=== PATIENT | male | born 1970 | race Caucasian/White ===

== ENCOUNTER → 2016-11-26 14:19 | Emergency (ER) | payer BC, OTHER ==
[~2016-11-26 14:19] MED LIST: Ketorolac INJ* 60 MG/2 ML VIAL IM ONE
--- NOTE | 2016-11-26 16:21 | ED ---
Throat Pain/Nasal Congestion - HPI Summary HPI Summary: Patient arrives to ED with CC of pain over left lower molar radiating to the jaw and ear. The tooth was in decay and broke off 2 days ago with now worsening pain. Denies trismus, drooling or dysphagia. Pain is 10/10, sharp and throbbing. Denies airway compromise or SOB. Denies ear pain, eye pain, blurry vision or double vision. Otherwise healthy. Pain is worse with chewing and cold drinks, better with ibuprofen, but only improves slightly. Patient denies dental care for several years. He notes to brown discharge from the left ear x 2 days with ear pain. - History of Current Complaint Chief Complaint: EDDentalPain Time Seen by Provider: 11/26/16 15:36 Hx Obtained From: Patient Onset/Duration: Sudden Onset Severity: Severe Associated Signs And Symptoms: Positive: Negative Related History: Smoking - Epiglottits Risk Factors Epiglottis Risk Factors: Negative - Allergies/Home Medications Allergies/Adverse Reactions: Allergies Allergy/AdvReac Type Severity Reaction Status Date / Time No Known Allergies Allergy Verified 06/06/13 19:33 PMH/Surg Hx/FS Hx/Imm Hx Previously Healthy: Yes - Immunization History Date of Tetanus Vaccine: unknown Hx Pertussis Vaccination: No Immunizations Up to Date: Unable to Obtain/Confirm Infectious Disease History: No Infectious Disease History: Denies: Traveled Outside the [place] in Last 30 Days - Social History Occupation: Employed Full-time Lives: With Family Alcohol Use: Rare Hx Substance Use: No Substance Use Type: Reports: None Hx Tobacco Use: No Smoking Status (MU): Never Smoked Tobacco Do You Chew or Dip Tobacco: No Review of Systems Constitutional: Negative Eyes: Negative Positive: Dental Pain, Ear Ache Cardiovascular: Negative Respiratory: Negative Positive: no symptoms reported, see HPI Musculoskeletal: Negative Neurological: Negative Psychological: Normal All Other Systems Reviewed And Are Negative: Yes Physical Exam Triage Information Reviewed: Yes Vital Signs On Initial Exam: Initial Vitals Temp Pulse Resp BP Pulse Ox 96.8 F 70 16 141/104 92 11/26/16 14:23 11/26/16 14:23 11/26/16 14:23 11/26/16 14:23 11/26/16 14:23 Vital Signs Reviewed: Yes Appearance: Positive: Well-Appearing, No Pain Distress, Well-Nourished Skin: Positive: Warm, Skin Color Reflects Adequate Perfusion Head/Face: Positive: Normal Head/Face Inspection Eyes: Positive: EOMI, ASHANTI, Conjunctiva Clear Neck: Positive: Supple, No Lymphadenopathy Respiratory/Lung Sounds: Positive: Clear to Auscultation, Breath Sounds Present Cardiovascular: Positive: Normal, RRR, Pulses are Symmetrical in both Upper and Lower Extremities Musculoskeletal: Positive: Normal, Strength/ROM Intact Neurological: Positive: Normal, Sensory/Motor Intact, Alert, Oriented to Person Place, Time, CN Intact II-III Psychiatric: Positive: Normal AVPU Assessment: Alert Diagnostics - Vital Signs Vital Signs Temp Pulse Resp BP Pulse Ox 11/26/16 14:23 96.8 F 70 16 141/104 92 - Laboratory Lab Statement: Any lab studies that have been ordered have been reviewed, and results considered in the medical decision making process. EENT Course/Dx - Course Course Of Treatment: No dental abscess or lesions seen over area of concern. Broken left lower molar with surrounding erythema at site of pain. No drainage from area. Several dental caries, cavities, crowding and broken teeth throughout. Pain on palpation over mandible. No TMJ tenderness. No pain with opening and closing mouth. Poor dental hygiene and outpatient dental care. Will treat for possible dental infection/abscess based on symptoms of pain and radiation to jaw and ear. No allergies. Will treat with Penicillin x 7 days. Small amount of fluid discharge yellow in color from the left ear. Will treat with Ofloxacin drops. Patient to follow up immediately with dentist and PCP. Percoset given as rx. - Differential Diagnoses Differential Diagnoses: Mastoiditis, Odontogenic Pain, Otitis Externa, Otitis Media, Pain of Unknown Etiology - Diagnoses Provider Diagnoses: Otitis externa, Pain, dental Discharge - Discharge Plan Condition: Stable Disposition: HOME Prescriptions: Ofloxacin 0.3% OTIC.TESS* [Floxin 0.3% OTIC.TESS*] 1 drop .SEE ORDER ONCE #1 btl Penicillin VK TAB 500 MG(NF) [Penicillin VK 500 mg Tab(NF)] 500 mg PO QID #28 tab MDD 4 oxyCODONE/Acetamin 5/325 MG* [Percocet 5/325 TAB*] 1 tab PO Q4H PRN #12 tab MDD 6 PRN Reason: Pain Patient Education Materials: Dental Abscess (ED), Otitis Externa (ED) Referrals: Storm,Shawnti R, PORTABLE IRRIGATION OPERATOR [Primary Care Provider] - Additional Instructions: You have been diagnosed with dental pain with possible infection: Antibiotics as prescribed to you. Penicillin four times daily for 7 days Otic drops. Instill 10 drops into L ear once daily To minimize the potential for gastrointestinal intolerance, Penicillin should be taken at the start of a meal. If you have any questions about your medication, please contact us or ask your pharmacist. Salt water rinses several times per day will improve healing time. Ibuprofen 600mg three times daily with meals for discomfort. Follow up with a dentist for routine care to prevent recurrence of infections. If fever, worsening pain or swelling develops, see your PCP, dentist or come back to the Emergency Department.
[2016-11-26 16:26] VITALS: BP 153/94
== END | disposition home or self-care (01) ==
LOC: ED 14:19
DX: H60.92 Unspecified otitis externa, left ear (principal); K08.89 Other specified disorders of teeth and supporting structures
CPT/HCPCS: 99282; J1885

== ENCOUNTER 2017-12-28 17:08 | Emergency (ER) | payer OTHER ==
[2017-12-28 17:33] VITALS: BP 117/79
--- NOTE | 2017-12-28 19:05 | UC ---
[facility] Dental HPI - HPI Summary HPI Summary: 47 y/o male presents to the urgent care c/o Rt lower jaw tooth pain for 2 days. Pt reports he had a problem with this same tooth and a cap was put on it. last year, but it seems now pain returned. Pain is 8/10 sharp and mild swelling around tooth. He has taken Ibuprofen PO to alleviate symptoms. Last dose was last night. Pt denies fever, trismus, CARLOS, SOB, chest pain, abdominal pain, N/v/ D. He has had different dentist in the past. - History of Current Complaint Chief Complaint: UCDentalProblem Stated Complaint: ABCESS IN TOOTH Time Seen by Provider: 12/28/17 18:46 Hx Obtained From: Patient Onset/Duration: Sudden Onset, Lasting Days - 3 days, Still Present, Worse Since - yesterday Severity: Moderate Pain Intensity: 8 Pain Scale Used: 0-10 Numeric Aggravating Factor(s): Cold Alleviating Factor(s): OTC Meds Related History: Previous Dental Care on Same Tooth, Swelling - Allergies/Home Medications Allergies/Adverse Reactions: Allergies Allergy/AdvReac Type Severity Reaction Status Date / Time No Known Allergies Allergy Verified 12/28/17 17:33 PMH/Surg Hx/FS Hx/Imm Hx Previously Healthy: Yes - Pt denies PMHX - Surgical History Surgical History: Yes Surgery Procedure, Year, and Place: Left knee. Left Orbit - Family History Known Family History: Positive: None - Pt denies FMHX - Social History Occupation: Employed Full-time Lives: With Family Alcohol Use: Occasionally Substance Use Type: None Smoking Status (MU): Never Smoked Tobacco Review of Systems Constitutional: Negative Skin: Negative Eyes: Negative ENT: Dental Pain - Rt lower toothache and swelling Respiratory: Negative Cardiovascular: Negative Gastrointestinal: Negative Genitourinary: Negative Motor: Negative Neurovascular: Negative Musculoskeletal: Negative Neurological: Negative Psychological: Negative Is Patient Immunocompromised?: No All Other Systems Reviewed And Are Negative: Yes Physical Exam - Summary Physical Exam Summary: Vital Signs Reviewed: Yes General: Well-Appearing, No Pain Distress, Well-Nourished Eyes: Positive: Conjunctiva Clear - PERRLA, EOMI, ENT: Positive: Normal ENT inspection, Hearing grossly normal, Pharynx normal, TMs normal - B/L external ear canals clear,. Negative: Tonsillar swelling, Tonsillar exudate, Trismus Dental: Positive: Mild Caries @ -Molar #28 w/ a cap in place. Abscess @ - w/ gingival swelling and erythema, tender to percussion. involves tissue surrounding the teeth #28, Cervical Lymphadenopathy - Neck: Positive: Supple Respiratory: Positive: Chest non-tender, Lungs clear, Normal breath sounds, No respiratory distress Cardiovascular: Positive: RRR, No Murmur, Pulses Normal, Brisk Capillary Refill Abdomen Description: Positive: Nontender, No Organomegaly, Soft. Negative: CVA Tenderness (R), CVA Tenderness (L) Bowel Sounds: Positive: Present Musculoskeletal: Positive: Strength Intact, ROM Intact, No Edema Neurological Exam: Normal Psychological Exam: Normal Skin Exam: Normal Triage Information Reviewed: Yes Vital Signs: Initial Vital Signs Temp 99.3 F 12/28/17 17:30 Pulse 83 12/28/17 17:30 Resp 18 12/28/17 17:30 BP 117/79 12/28/17 17:30 Pulse Ox 97 12/28/17 17:30 Dental Complaint Course/Dx - Course Course Of Treatment: 47 y/o male presents to the urgent care c/o Rt lower jaw tooth pain for 2 days. Pt reports he had a problem with this same tooth and a cap was put on it. last year, but it seems now pain returned. Pain is 8/10 sharp and mild swelling around tooth. He has taken Ibuprofen PO to alleviate symptoms. Last dose was last night. Pt denies fever, trismus, CARLOS, SOB, chest pain, abdominal pain, N/v/D. He has had different dentist in the past. Hx obtained. Pt w/ possibly a dental abscess on molar #28. Pt given viscous Lidocaine and a Toradol IM inj at the clinic to alleviate symptoms. Pt tolerated well IM inj givne by nurse. Pt also given Frist dose of Clindamycin PO and Rx sent to pharmacy. Pt strongly advised to f/u with Dentist as soon as possible further evaluation and treatment. d/c instructions explained. Pt understood and agreed with plan of care. Left the clinic ambulating. - Differential Dx/Diagnosis Differential Diagnosis/Dx: Dental Abscess, Dental Caries, Peridontic Disease, Peritonsillar Abcess Provider Diagnoses: 1- Dental abscess around molar #28 Discharge - Sign-Out/Discharge Documenting (check all that apply): Patient Departure - D/c home - Discharge Plan Condition: Stable Disposition: HOME Prescriptions: Clindamycin Cap(NF) [Clindamycin Cap 300 mg Cap(NF)] 300 mg PO TID #28 cap Patient Education Materials: Dental Abscess (ED) Referrals: Roxi Herrera STUDENT FINANCIAL AID MANAGER [Primary Care Provider] - 2 Days Additional Instructions: 1-Please take full course of antibiotic starting tomorrow to avoid resistance. first loading dose given tonight 2- Please continue taking Ibuprofen PO q6-8hrs prn as instructed after meals to alleviate pain and swelling. 3- F/u with your Dentist or Dental List provided as soon as possible for further treatment. 4- If symptoms do not improve or worsen please return to the urgent care or f/u with your PCP for further evaluation and treatment - Billing Disposition and Condition Condition: STABLE Disposition: Home
[2017-12-28] MEDS ORDERED: Ketorolac INJ* 30 MG/ML 1 ML VIAL IM ONE (19:11)
[2017-12-28] MEDS ORDERED: Lidocaine 2% VISCOUS* 15 ML UDC SWISH SPIT ONE (19:12)
[2017-12-28] MEDS ORDERED: Clindamycin CAP* 150 MG PO ONE (19:13)
== END 2017-12-28 19:30 | disposition home or self-care (01) ==
LOC: UCEAST 17:08
DX: K04.7 Periapical abscess without sinus (principal)
CPT/HCPCS: 96372; 99213; A9270-GY; G0463; J1885

== ENCOUNTER 2017-12-29 03:17 | Emergency (ER) | payer OTHER ==
[2017-12-29] MEDS ORDERED: Piperacillin/Tazobac ADVAN(*) 3.375 GM in NS 0.9% 100 ML* 100 ML IVPB ONE (04:23)
[2017-12-29] MEDS ORDERED: Dexamethasone IV* 4 MG/ML 1 ML (4 MG) IV SLOW PU ONE (04:24)
[2017-12-29] MEDS ORDERED: NS 0.9% 1000 ML* 1,000 ML IV ONE (04:24)
[2017-12-29] MEDS ORDERED: Morphine INJ* 2 MG/ML 1 ML SYRINGE (TWO MG - NEW SYRINGE VERSION) IV ONE (04:24)
[2017-12-29] MEDS ORDERED: Metoclopramide IV* 5 MG/ML 2 ML VIAL IV SLOW PU ONE (04:25)
[2017-12-29 04:49] LABS: ABS Basophils 0 10^3/ul (0-0.2); ABS Eosinophils 0.1 10^3/ul (0-0.6); ABS Lymphocytes 1.1 10^3/ul (1.0-4.8); ABS Monocytes 0.5 10^3/ul (0-0.8); ABS Neutrophils 4.4 10^3/ul (1.5-7.7); ABS Nucleated RBC 0 10^3/ul; Eosinophil % 2.3 % (0-6); Hematocrit 46 % (42-52); Hemoglobin 15.9 g/dl (14.0-18.0); Mean Corpuscular HGB Conc 34 g/dl (31-36); Mean Corpuscular Hemoglobin 32 pg (27-31); Mean Corpuscular Volume 93 fL (80-94); Mean Platelet Volume 9.1 um3 (7.4-10.4); Nucleated Red Blood Cells % 0.1; Platelet Count 140 10^3/ul (150-450); Red Blood Count 4.99 10^6/ul (4.00-5.40); Red Cell Distribution Width 14 % (10.5-15); White Blood Count 6.1 10^3/ul (3.5-10.8)
--- NOTE | 2017-12-29 04:58 | ED ---
Throat Pain/Nasal Congestion - HPI Summary HPI Summary: This is barbara Uribe documenting for Dr. Ross Alvarado MD. Pt is 47 y/o M who presents to ED c/o tooth pain. Rates his pain intensity as 6/ 10 in severity. Went to [facility] earlier for tooth infection, but the swelling has gotten worse since then and spread under his tongue as well. The symptoms began a few days ago. Denies fever or throat issues. Tried to use peroxide to treat himself before going to [facility]. Nothing alleviates or exacerbates symptoms. No medications or other medical problems. - History of Current Complaint Chief Complaint: EDDentalPain Time Seen by Provider: 12/29/17 04:11 Hx Obtained From: Patient Onset/Duration: Lasting Days, Still Present Severity: Moderate - 6/10 Associated Signs And Symptoms: Negative: Dysphagia - Allergies/Home Medications Allergies/Adverse Reactions: Allergies Allergy/AdvReac Type Severity Reaction Status Date / Time No Known Allergies Allergy Verified 12/29/17 03:18 PMH/Surg Hx/FS Hx/Imm Hx Endocrine/Hematology History: Denies: Hx Blood Disorders Respiratory History: Denies: Hx Lung Cancer - Surgical History Surgery Procedure, Year, and Place: Left knee. Left Orbit - Immunization History Date of Tetanus Vaccine: unknown Infectious Disease History: No Infectious Disease History: Denies: Traveled Outside the [place] in Last 30 Days - Family History Known Family History: Negative: Seizure Disorder - Social History Alcohol Use: Occasionally Hx Substance Use: No Substance Use Type: Reports: None Hx Tobacco Use: No Smoking Status (MU): Never Smoked Tobacco Review of Systems Negative: Fever Positive: Dental Pain. Negative: Sore Throat All Other Systems Reviewed And Are Negative: Yes Physical Exam - Summary Physical Exam Summary: VITAL SIGNS: Reviewed. GENERAL: Patient is a well-developed and nourished male who is lying comfortable in the stretcher. Patient is not in any acute respiratory distress. HEAD AND FACE: Swelling and tenderness over right lower face. No signs of trauma. No ecchymosis, hematomas or skull depressions. No sinus tenderness. EYES: PERRLA, EOMI x 2, No injected conjunctiva, no nystagmus. EARS: Hearing grossly intact. Ear canals and tympanic membranes are within normal limits. MOUTH: Tenderness over right lower gum. NECK: Supple, trachea is midline, no adenopathy, no JVD, no carotid bruit, no c- spine tenderness, neck with full ROM. CHEST: Symmetric, no tenderness at palpation LUNGS: Clear to auscultation bilaterally. No wheezing or crackles. CVS: Regular rate and rhythm, S1 and S2 present, no murmurs or gallops appreciated. ABDOMEN: Soft, non-tender. No signs of distention. No rebound no guarding, and no masses palpated. Bowel sounds are normal. EXTREMITIES: FROM in all major joints, no edema, no cyanosis or clubbing. NEURO: Alert and oriented x 3. No acute neurological deficits. Speech is normal and follows commands. SKIN: Dry and warm Triage Information Reviewed: Yes Vital Signs On Initial Exam: Initial Vitals Temp Pulse Resp BP Pulse Ox 97.8 F 60 18 154/108 96 12/29/17 03:18 12/29/17 03:18 12/29/17 03:18 12/29/17 03:18 12/29/17 03:18 Vital Signs Reviewed: Yes Diagnostics - Vital Signs Vital Signs Temp Pulse Resp BP Pulse Ox 12/29/17 04:41 16 12/29/17 03:18 97.8 F 60 18 154/108 96 - Laboratory Lab Results: Lab Results 12/29/17 Range/Units 04:37 WBC 6.1 (3.5-10.8) 10^3/ul RBC 4.99 (4.00-5.40) 10^6/ul Hgb 15.9 (14.0-18.0) g/dl Hct 46 (42-52) % MCV 93 (80-94) fL MCH 32 H (27-31) pg MCHC 34 (31-36) g/dl RDW 14 (10.5-15) % Plt Count 140 L (150-450) 10^3/ul MPV 9.1 (7.4-10.4) um3 Neut % (Auto) 71.0 (38-83) % Lymph % (Auto) 18.0 L (25-47) % [place] % (Auto) 8.0 H (0-7) % Eos % (Auto) 2.3 (0-6) % Baso % (Auto) 0.7 (0-2) % Absolute Neuts (auto) 4.4 (1.5-7.7) 10^3/ul Absolute Lymphs (auto) 1.1 (1.0-4.8) 10^3/ul Absolute Monos (auto) 0.5 (0-0.8) 10^3/ul Absolute Eos (auto) 0.1 (0-0.6) 10^3/ul Absolute Basos (auto) 0 (0-0.2) 10^3/ul Absolute Nucleated RBC 0 10^3/ul Nucleated RBC % 0.1 Result Diagrams: 12/29/17 04:37 12/29/17 04:37 Lab Statement: Any lab studies that have been ordered have been reviewed, and results considered in the medical decision making process. - CT CT Maxillofacial CT Interpretation Completed By: Radiologist - IMPRESSION: 1. There is scattered subcutaneous emphysema noted overlying the right maxillary bone with surrounding inflammatory changes. There is no rim-enhancing collection visualized. 2. There are prominent appearing lymph nodes noted measuring up to 1.5 CM, findings may be reactive in nature. ED Physician reviewed this report. Re-Evaluation - Re-Evaluation First Eval Re-Evaluation Time: 06:40 Change: Improved - Pt feels better and swelling is down. Discussed CT results and plans to discharge home. Pt is agreeable with plan. EENT Course/Dx - Course Course Of Treatment: Pt is 47 y/o M who presents to ED c/o tooth pain. Rates his pain intensity as 6/10 in severity. Went to [facility] earlier for tooth infection , but the swelling has gotten worse since then and spread under his tongue as well. The symptoms began a few days ago. Denies fever. Tried to use peroxide to treat himself before going to [facility]. Nothing alleviates or exacerbates symptoms. No medications or other medical problems. Physical exam revealed swelling and tenderness over right lower face, and tenderness over right lower gum. CT Maxillofacial shows scattered subcutaneous emphysema noted overlying the right maxillary bone with surrounding inflammatory changes and prominent appearing lymph nodes noted measuring up to 1.5 CM. ED Physician reviewed this report and agrees. Pt feels better at 6:40 and swelling is down. Discussed CT results with pt and plans to discharge home. He is agreeable with plan. Pt is diagnosed with gingivitis and he will follow up with dentist this morning as planned. - Diagnoses Provider Diagnoses: Gingivitis Discharge - Sign-Out/Discharge Documenting (check all that apply): Patient Departure - Discharge - Discharge Plan Condition: Stable Disposition: HOME Patient Education Materials: Gingivitis (ED) Referrals: Roxi Herrera ADVERTISING PRODUCTION MANAGER [Primary Care Provider] - 2 Days Additional Instructions: Follow up with your dentist. RETURN FOR ANY NEW OR WORSENING SYMPTOMS.
[2017-12-29 05:03] LABS: EGFR Non-African American 64.9 (>60)
[2017-12-29] MEDS ORDERED: Iohexol 300* (CONTRAST) 10 ML SDV IV ONE (05:31)
[2017-12-29 06:48] VITALS: BP 139/76
--- NOTE | 2017-12-30 07:32 | RAD ---
INDICATION: Facial abscess COMPARISON: None TECHNIQUE: Axial source images were acquired from the vertex of the mandible through the orbits. Coronal and sagittal reconstructed images were acquired. 75 mL Omnipaque 300 was utilized FINDINGS: Bones: There is no acute facial bone fracture. There is a surgical plate and screws at the level of the left maxillary antrum related to prior injury. Orbits: The globes and intraconal structures appear intact. The optic nerves are symmetric. Extraocular muscles appear normal. There is no intraconal inflammatory change or retrobulbar mass.. Paranasal sinuses: The paranasal sinuses are clear. Brain: There are no acute abnormalities of the visualized brain parenchyma. Soft tissues: There is a small amount subcutaneous emphysema about the right mandible with minor skin induration and subcutaneous edema consistent with inflammatory response. There is no localized fluid collections to suggest abscess. There are mildly asymmetric lymph nodes which are likely reactive and are not technically enlarged by size criteria. Other: None The visualized soft tissue elements about the neck appear normal. IMPRESSION: MILD INFLAMMATORY CHANGE ABOUT THE RIGHT MANDIBLE. NO LOCALIZED FLUID COLLECTION TO SUGGEST ABSCESS. .
== END 2017-12-29 06:46 | disposition home or self-care (01) ==
LOC: ED 03:17
DX: K05.10 Chronic gingivitis, plaque induced (principal); T79.7XXA Traumatic subcutaneous emphysema, initial encounter; X58.XXXA Exposure to other specified factors, initial encounter
CPT/HCPCS: 36415; 70487; 80053; 83605; 85025; 87040; 96374; 96375; 99283; J1100; J2270; J2543; J2765; Q9967

== ENCOUNTER 2018-02-19 09:50 | Emergency (ER) | payer BC, OTHER ==
[2018-02-19] MEDS ORDERED: Ketorolac INJ* 60 MG/2 ML VIAL IM ONE (10:31)
[2018-02-19] MEDS ORDERED: Orphenadrine Citrate IV* 30 MG/ML 2 ML VIAL IM ONE (10:31)
--- NOTE | 2018-02-19 10:36 | ED ---
Back Pain - HPI Summary HPI Summary: This patient is a 47 year old M presenting to [facility] with a chief complaint of lower back pain s/p lifting a bucket at 0730. He endorses nausea and occasional left thigh pain. He denies abd pain and incontinence. He notes that years ago he suffered 3 herniated discs; did PT, did not have any back surgeries. - History of Current Complaint Chief Complaint: EDBackInjuryPain Stated Complaint: BACK PAIN Time Seen by Provider: 02/19/18 10:21 Hx Obtained From: Patient Onset/Duration: Sudden Onset, Lasting Hours, Still Present Onset/Duration: Started Hours Ago, Still Present Timing: Constant Back Pain Location: Is Discrete @ - lower back Severity Initially: Moderate Severity Currently: Moderate Pain Intensity: 4 Pain Scale Used: 0-10 Numeric Aggravating Symptom(s): Movement, Lifting, Bending Alleviating Symptom(s): Nothing Associated Signs And Symptoms: Positive: Other - nausea. Negative: Fever, Abdominal Pain, Bladder Incontinence, Bowel Incontinence - Allergies/Home Medications Allergies/Adverse Reactions: Allergies Allergy/AdvReac Type Severity Reaction Status Date / Time No Known Allergies Allergy Verified 12/29/17 03:18 Home Medications: Home Medications Ibuprofen 800 mg pe PO 02/19/18 [History] PMH/Surg Hx/FS Hx/Imm Hx Endocrine/Hematology History: Denies: Hx Blood Disorders, Hx Sickle Cell Disease Respiratory History: Denies: Hx Lung Cancer History: Denies: Hx Dialysis Musculoskeletal History: Reports: Hx Back Problems - 3x herniated discs Sensory History: Denies: Hx Legally Blind, Hx Deafness Opthamlomology History: Denies: Hx Legally Blind EENT History: Denies: Hx Deafness Neurological History: Denies: Hx Dementia Psychiatric History: Denies: Hx Schizophrenia - Surgical History Surgery Procedure, Year, and Place: Left knee. Left Orbit - Immunization History Date of Tetanus Vaccine: unknown Infectious Disease History: No Infectious Disease History: Reports: Traveled Outside the [place] in Last 30 Days - Family History Known Family History: Negative: Seizure Disorder - Social History Occupation: Employed Full-time Alcohol Use: Occasionally Hx Substance Use: No Substance Use Type: Reports: None Hx Tobacco Use: No Smoking Status (MU): Never Smoked Tobacco Review of Systems Negative: Fever Positive: Nausea. Negative: Abdominal Pain Positive: no symptoms reported. Negative: incontinence Positive: Myalgia - lower back, left thigh transiently All Other Systems Reviewed And Are Negative: Yes Physical Exam - Summary Physical Exam Summary: Appearance: Well appearing, no pain distress Skin: warm, dry, reflects adequate perfusion Head/face: normal Eyes: EOMI, ASHANTI ENT: normal Neck: supple, non-tender Respiratory: CTA, breath sounds present Cardiovascular: RRR, pulses symmetrical Abdomen: non-tender, soft Bowel: present Musculoskeletal: spasm over lumbar spine, strength/ROM intact Neuro: normal, sensory motor intact, A&Ox3 Triage Information Reviewed: Yes Vital Signs On Initial Exam: Initial Vitals Temp Pulse Resp BP Pulse Ox 98.2 F 61 16 130/87 97 02/19/18 10:12 02/19/18 10:12 02/19/18 10:12 02/19/18 10:12 02/19/18 10:12 Vital Signs Reviewed: Yes Diagnostics - Vital Signs Vital Signs Temp Pulse Resp BP Pulse Ox 02/19/18 10:12 98.2 F 61 16 130/87 97 - Laboratory Lab Statement: Any lab studies that have been ordered have been reviewed, and results considered in the medical decision making process. 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 #. Multilevel degenerative spondylosis with interval progression. #. Negative for acute fracture. Back Pain Course/Dx - Course Course Of Treatment: A 47-year-old M presents to the ED with a CC of lower back pain since 729. (+) lower back pain, occasional left thigh pain, and nausea. (- ) incontinence and abd pain. PMHx 3x herniated discs, no surgery. Was lifting a bucket and pain onset. In the ED course, pt was given toradol and norflex. An XR L-spine was (-) aside from chronic bilateral L5 spondylolysis and grade 1 anterolisthesis and multilevel degenerative spondylosis with interval progression. - Diagnoses Differential Diagnosis/HQI/PQRI: Positive: Fracture, Strain Provider Diagnoses: Back pain Discharge - Sign-Out/Discharge Documenting (check all that apply): Patient Departure - discharge - Discharge Plan Condition: Stable Disposition: HOME Prescriptions: Cyclobenzaprine TAB* [Flexeril 10 MG TAB*] 10 mg PO TID PRN #12 tab MDD 3 PRN Reason: Pain Diclofenac Sodium EC TAB* [Voltaren EC TAB*] 50 mg PO TID PRN #20 tab.ec MDD 3 PRN Reason: Pain Patient Education Materials: Back Pain (ED) Referrals: Agustín Wray MD [Medical Doctor] - 3 Days Additional Instructions: Return to the emergency department for any new or worsening symptoms. - Billing Disposition and Condition Condition: STABLE Disposition: Home - Attestation Statements Document Initiated by Anabelibe: Yes Documenting Scribe: Ankit Melton Provider For Whom Madeleine is Documenting (Include Credential): Dr. Crow Lindsey MD Scribe Attestation: Ankit Walton scribed for Dr. Crow Lindsey MD on 02/19/18 at 1201. Scribe Documentation Reviewed: Yes Provider Attestation: The documentation as recorded by the Ankit jimenez accurately reflects the service I personally performed and the decisions made by me, Dr. Crow Lindsey MD
--- NOTE | 2018-02-19 11:37 | RAD ---
Indication: Lower back pain with occasional radiation to the LEFT leg exacerbated by lifting this morning. Comparison: February 01, 2010 MRI and December 29, 2009 CT. Technique: AP, lateral, and oblique views lumbar sacral spine. Report: Straightening relative to normal lumbar lordosis. Unchanged minimal grade 1 L5-S1 anterolisthesis. Bilateral L5 spondylolysis is chronic based on correlation with the 2010 CT. Negative for acute fracture. Multilevel degenerative spondylosis with moderate disc space narrowing most prominent at the L3-L4 and L4-L5 levels with interval worsening. Unremarkable paraspinal soft tissue contours. IMPRESSION: #. Chronic bilateral L5 spondylolysis and grade 1 anterolisthesis. #. Multilevel degenerative spondylosis with interval progression. #. Negative for acute fracture.
[2018-02-19 11:55] VITALS: BP 127/79
== END 2018-02-19 11:54 | disposition home or self-care (01) ==
LOC: ED 09:50
DX: M54.5 Low back pain (principal); X50.9XXA Other and unspecified overexertion or strenuous movements or postures, initial encounter; Y92.9 Unspecified place or not applicable; M79.652 Pain in left thigh; R11.0 Nausea; M43.16 Spondylolisthesis, lumbar region
CPT/HCPCS: 72110; 96372; 99282; J1885; J2360

== ENCOUNTER 2018-11-23 14:14 | Emergency (ER) | payer BC, OTHER ==
[2018-11-23 14:27] VITALS: BP 135/89
--- NOTE | 2018-11-23 15:11 | UC ---
Knee Pain HPI - HPI Summary HPI Summary: 48 yo male presents with LEFT knee pain. He tells me that earlier today he was going down some steps and "jolted" his left knee. Since then has had some pain and swelling to the medial aspect of his knee. He is ambulatory without assistance, but it is painful. He has not taken anything OTC for his discomfort. He has had multiple surgeries on his left knee. He denies numbness, tingling, or instability to the knee. - History of Current Complaint Chief Complaint: UCLowerExtremity Stated Complaint: LT KNEE INJURY Time Seen by Provider: 11/23/18 15:10 Hx Obtained From: Patient Onset/Duration: Sudden Onset Severity Initially: Moderate Severity Currently: Mild Pain Intensity: 4 Pain Scale Used: 0-10 Numeric Aggravating Factor(s): Weight Bearing Able to Bear Weight: Yes - Allergies/Home Medications Allergies/Adverse Reactions: Allergies Allergy/AdvReac Type Severity Reaction Status Date / Time No Known Allergies Allergy Verified 11/23/18 14:26 Home Medications: Home Medications NK [No Home Medications Reported] 11/23/18 [History Confirmed 11/23/18] PMH/Surg Hx/FS Hx/Imm Hx - Additional Past Medical History Additional PMH: None - Surgical History Surgical History: Yes Surgery Procedure, Year, and Place: Left knee repair. right shoulder. Left Orbit fracture. lipoma - Family History Known Family History: Positive: None Negative: Seizure Disorder - Social History Occupation: Employed Full-time Lives: With Family Alcohol Use: Weekly Substance Use Type: None Smoking Status (MU): Never Smoked Tobacco Review of Systems All Other Systems Reviewed And Are Negative: Yes Constitutional: Positive: Negative Skin: Positive: Negative Respiratory: Positive: Negative Cardiovascular: Positive: Negative Neurovascular: Positive: Negative Musculoskeletal: Positive: Other: - Left knee pain Neurological: Positive: Negative Psychological: Positive: Negative Physical Exam - Summary Physical Exam Summary: GENERAL: NAD. WDWN. No pain distress. SKIN: No rashes, sores, lesions, or open wounds. CHEST: No accessory muscle use. Breathing comfortably and in no distress. CV: Pulses intact popliteal, PT, and DP. Cap refill <2seconds MSK: LEFT KNEE: Mild TTP at medial aspect of joint line with mild edema. FROM. Strength 5/5. No patella apprehension. Negative Davian, A/P drawer, Tico, and varus/valgus stress. NEURO: Alert. Sensations intact and symmetric B/L LEs PSYCH: Age appropriate behavior. Triage Information Reviewed: Yes Vital Signs: Initial Vital Signs Temp 98 F 11/23/18 14:23 Pulse 44 11/23/18 14:23 Resp 18 11/23/18 14:23 BP 135/89 11/23/18 14:23 Pulse Ox 97 11/23/18 14:23 Vital Signs Reviewed: Yes Knee Pain Course/Dx - Course Course Of Treatment: XR: IMPRESSION: Postoperative changes of the left knee. Mild degenerative changes in the medial and lateral compartment as well as the patellofemoral joint. Repeat HR 60 bpm. Suspect strain of knee. Recommended that he RICE and use an otc knee brace. Will have him f/u with Orthopedics if symptoms do not improve - Differential Dx/Diagnosis Provider Diagnosis: Left knee pain Discharge - Sign-Out/Discharge Documenting (check all that apply): Patient Departure All imaging exams completed and their final reports reviewed: Yes - Discharge Plan Condition: Stable Disposition: HOME Patient Education Materials: Knee Pain (ED) Forms: *Work Release Referrals: Roxi Herrera NP [Primary Care Provider] - Anh Garcia MD [Medical Doctor] - If Needed Additional Instructions: If you develop a fever, shortness of breath, chest pain, new or worsening symptoms - please call your PCP or go to the ED immediately. Your blood pressure was high at todays visit. Please see your primary provider within 4 weeks for recheck and re-evaluation. 1) Rest, Ice, and elevate your knee to reduce pain and swelling 2) Use an [id number] knee brace for support and comfort 3) May take tylenol/ibuprofen as directed for discomfort 4) If your symptoms do not improve within 4-5 days, please call Orthopedics at the number below to schedule an appointment for further evaluation - Billing Disposition and Condition Condition: STABLE Disposition: Home
== END 2018-11-23 15:26 | disposition home or self-care (01) ==
LOC: UCEAST 14:14
DX: M25.562 Pain in left knee (principal); M25.462 Effusion, left knee; Z98.890 Other specified postprocedural states
CPT/HCPCS: 99211; G0463

== ENCOUNTER 2019-03-05 08:06 | Day surgery (SDC) | payer OTHER ==
[~2019-03-05 08:06] MED LIST changes: +Buffered Lidocaine 1% SYRIN* 1 ML/SYRINGE INTRADERM ONE; +Dexamethasone IV* 4 MG/ML 1 ML (4 MG) IV SLOW PU ONE; +Dexamethasone IV* 4 MG/ML 1 ML (4 MG) ONE; +Famotidine IV* 10 MG/ML 2 ML (20 mg) IV ONE; +Famotidine IV* 10 MG/ML 2 ML (20 mg) ONE; -Ketorolac INJ* 60 MG/2 ML VIAL IM ONE; +Lactated Ringers 1000 ML Bag* 1,000 ML IV SCH; +ceFAZolin 2 GM PREMIX in ORs 2 GM/50 ML BAG ONE
[2019-03-05] MEDS ORDERED: Ondansetron INJ* 2 MG/ML VIAL ONE (09:23)
[2019-03-05] MEDS ORDERED: Ketorolac INJ* 30 MG/ML 1 ML VIAL ONE (09:23)
[2019-03-05] MEDS ORDERED: fentaNYL* 50 MCG/ML 2 ML VIAL (100 MCG VIAL) ONE (09:23)
[2019-03-05] MEDS ORDERED: Propofol* 10 MG/ML 20 ML BTL ONE (09:23)
[2019-03-05] MEDS ORDERED: Chloroprocaine 2%* 20 ML VIAL ONE (09:27)
[2019-03-05] MEDS ORDERED: Bupivacaine 0.5% SDV PF* 30ML VIAL ONE (09:34)
[2019-03-05] MEDS ORDERED: Naloxone* 0.4 MG/ML 1 ML VIAL IV PRN (10:05)
[2019-03-05] MEDS ORDERED: Ondansetron INJ* 2 MG/ML VIAL IV PRN (10:05)
[2019-03-05] MEDS ORDERED: fentaNYL* 50 MCG/ML 2 ML VIAL (100 MCG VIAL) IV PRN (10:05)
[2019-03-05] MEDS ORDERED: DiMENhydriNATE IV* 50 MG/ML VIAL IV PUSH PRN (10:05)
[2019-03-05] MEDS ORDERED: oxyCODONE/Acetamin 5/325 MG* TAB PO PRN (10:05)
--- NOTE | 2019-03-05 12:10 | OP ---
Operative Report - Blank - Operative Report Date of Operation: 03/05/19 Note: PATIENT: Mukesh Chang DATE OF : 1970 DATE OF SURGERY: 03/05/2019 SURGEON: Syed Velazquez MD CRITICAL CARE TECHNICIAN: PRAKASH Lentz, whos assistance was necessary for positioning, retraction, help with instrumentation, and closure. ANESTHESIOLOGIST: Dr. Cadena PREOPERATIVE DIAGNOSIS: Left knee medial meniscus tear and loose body. POSTOPERATIVE DIAGNOSIS: Left knee medial meniscus tear and loose body. OPERATION: Left knee arthroscopy with partial medial meniscectomy and removal of loose bodies. ANESTHESIA: General IMPLANTS: none TOURNIQUET TIME: Less than one hour, with a well-padded thigh tourniquet at 250 mmHg. SPECIMENS: None ESTIMATED BLOOD LOSS: minimal COMPLICATIONS: none STATUS: Stable from the operating room to the recovery room and then home. INDICATIONS FOR PROCEDURE: Mukesh had a prior ACL tear and reconstruction. That has failed. He has developed some arthritis in the knee but more recently medial pain, as well as mechanical symptoms of catching and locking. Both operative and non operative treatment alternatives were reviewed. Further, the nature and risks of surgery were reviewed in careful detail, in the office as well as the pre-operative holding area. Our discussions regarding the risks of surgery included, but were not limited to, infection, wound problems, nerve injury, neuroma, RSD, persistent symptoms, blood clot, failure of the surgery, need for further surgery, worsening arthritis, and even the remote chance of catastrophic complication. DESCRIPTION OF PROCEDURE: The patient was seen in the preoperative holding unit and informed written consent was obtained. The appropriate extremity was marked. The patient was then brought to the operating room and carefully positioned on the operating room table. Anesthesia was induced. All bony prominences were padded with great care. A well-padded thigh tourniquet was placed. A chlorhexidine based pre- scrub was performed followed by a chloraprep prep and drape in standard sterile fashion. A surgical safety pause was then conducted in which we confirmed the appropriate patient, extremity, planned procedure, availability of equipment, indication and administration of prophylactic antibiotics, and DVT prophylaxis in the form of a compression boot on the non-surgical extremity. I began with an Esmarch exsanguination of the limb and inflated the tourniquet. I insufflated the joint by injecting sterile saline. I began by making a standard anterolateral knee arthroscopy portal. The arthroscope was inserted into the knee joint and a diagnostic arthroscopy was performed. He had advanced degenerative changes in the patellofemoral and medial compartments. He had a complex tear of the medial meniscus. There were some small loose bodies floating around the anterior aspect of the joint. There was no ACL present. Under direct visualization an anteromedial arthroscopy portal was made. I introduced a probe into the joint. A biter and oscillating shaver were used to debride the meniscal tear back to a stable rim. I used a grasper to remove the loose bodies. I then performed an extensive irrigation of the joint while running the shaver in each of the knee compartments to remove any loose debris. Once thoroughly irrigated and debrided , I suctioned the fluid out of the joint. The arthroscopy portals were then closed utilizing 3-0 nylon. A sterile dressing was then applied. The patient was then awakened from anesthesia and transferred to the recovery room in stable condition. There were no complications. All needle and sponge counts were correct at the end of the case. ATTESTATION: I attest I was present and scrubbed and performed the critical portions of the procedure myself. POSTOPERATIVE PLAN: The plan is for weight-bearing as tolerated with crutches. Follow-up will be in 2 weeks for likely suture removal.
[2019-03-05 12:39] VITALS: BP 136/86
== END 2019-03-05 12:21 | disposition home or self-care (01) ==
LOC: OREAST 08:06
PROVIDERS: ATTEND Orthopaedic Surgery
DX: S83.242D Other tear of medial meniscus, current injury, left knee, subsequent encounter (principal); X58.XXXD Exposure to other specified factors, subsequent encounter; Y92.9 Unspecified place or not applicable; K21.9 Gastro-esophageal reflux disease without esophagitis; M19.90 Unspecified osteoarthritis, unspecified site; M54.5 Low back pain
CPT/HCPCS: J0690; J1100; J1885; J2400; J2405; J2704; J3010; J3490